=== PATIENT | male | born 1955 | race Caucasian/White ===

== ENCOUNTER 2020-08-26 07:43 | Emergency (ER) | payer MEDICARE, BC ==
[2020-08-26] MEDS ORDERED: Acetaminophen 325 MG Tab PO ONE (08:45)
--- NOTE | 2020-08-26 08:49 | EDM.PDOC ---
ED HPI GENERAL MEDICAL PROBLEM - General Chief Complaint: Head Injury Stated Complaint: HEAD INJURY Time Seen by Provider: 08/26/20 07:53 Source of Information: Reports: Patient History Limitations: Reports: No Limitations - History of Present Illness INITIAL COMMENTS - FREE TEXT/NARRATIVE: The patient presents with a head and neck injury. The patient was out shoveling snow and he slipped on ice and landed on his head. He is not sure if he had an LOC. He does have a headache and upper neck pain. He has no numbness or weakness. He has no fever, chills, cough, chest pain, shortness of breath, abdominal pain, nausea or vomiting. He takes a low dose aspirin daily. He has an abrasion to the back of his head. Onset: Sudden Duration: Minutes: Location: Reports: Head, Neck Quality: Reports: Sharp Severity: Moderate Improves with: Reports: Immobilization Worsens with: Reports: Movement Context: Reports: Trauma (slipped and fell and hit his head and hurt his neck) Associated Symptoms: Reports: Headaches. Denies: Chest Pain, Cough, Fever/Chills, Nausea/Vomiting, Shortness of Breath Posterior Head Pain Score (Numeric/FACES): 8 - Related Data Allergies Allergy/AdvReac Type Severity Reaction Status Date / Time amoxicillin [From Augmentin] Allergy Liver Verified 08/26/20 07:55 Problems aspirin Allergy Bleeding Verified 08/26/20 07:55 clavulanic acid Allergy Liver Verified 08/26/20 07:55 [From Augmentin] Problems Penicillins Allergy Stomach Verified 08/26/20 07:55 Upset Home Meds: Home Meds atorvaSTATin [Lipitor] 20 mg PO DAILY 08/26/20 [History] lisinopriL [Lisinopril] 5 mg PO DAILY 08/26/20 [History] Past Medical History HEENT History: Reports: Hard of Hearing, Impaired Vision Other HEENT History: reading eyeglasses Cardiovascular History: Reports: High Cholesterol, Hypertension, Other (See Below) Other Cardiovascular History: stress test. Respiratory History: Reports: Asthma Gastrointestinal History: Reports: GERD - Past Surgical History HEENT Surgical History: Reports: Adenoidectomy, Tonsillectomy Musculoskeletal Surgical History: Reports: Other (See Below) Other Musculoskeletal Surgeries/Procedures:: lypoma removed. Social & Family History - Tobacco Use Tobacco Use Status *Q: Never Tobacco User Second Hand Smoke Exposure: No - Caffeine Use Caffeine Use: Reports: None - Recreational Drug Use Recreational Drug Use: No ED ROS GENERAL - Review of Systems Review Of Systems: See Below Constitutional: Reports: No Symptoms HEENT: Reports: No Symptoms Respiratory: Reports: No Symptoms Cardiovascular: Reports: No Symptoms Endocrine: Reports: No Symptoms GI/Abdominal: Reports: No Symptoms : Reports: No Symptoms Musculoskeletal: Reports: Neck Pain Skin: Reports: No Symptoms Neurological: Reports: Headache ED EXAM, HEAD INJURY - Physical Exam Exam: See Below Exam Limited By: No Limitations General Appearance: Alert, No Apparent Distress Head: Other (abrasion to the back of his head) Ears: Normal External Exam Nose: Normal Inspection Neck: Tenderness (upper neck) Respiratory: No Respiratory Distress, Lungs Clear, Normal Breath Sounds Cardiovascular: Regular Rate, Rhythm, No Edema, No Murmur GI/Abdominal Exam: Soft, Non-Tender, No Organomegaly, No Mass Back Exam: Normal Inspection Extremities: Normal Inspection Neurologic: No Motor/Sensory Deficits, Alert, Oriented x 3 Course - Vital Signs Last Recorded V/S: Last Vital Signs Temp 97.7 F 08/26/20 07:45 Pulse 86 08/26/20 07:45 Resp 20 08/26/20 07:45 BP 161/81 H 08/26/20 07:45 Pulse Ox 99 08/26/20 07:45 - Orders/Labs/Meds Orders: Active Orders 24 hr Category Date Time Status Cervical Spine wo Cont [CT] Stat Exams 08/26/20 08:15 Taken Head wo Cont [CT] Stat Exams 08/26/20 07:57 Taken Thyroid or Neck (non vasc) [Head Neck Soft Tissue Bi] [ Exams 08/26/20 09:06 Taken US] Stat Labs: Laboratory Tests 08/26/20 Range/Units 09:52 Free T4 0.91 (0.76-1.46) ng/dL TSH 3rd Generation 1.338 (0.358-3.74) uIU/mL Meds: Medications Discontinued Medications Generic Name Dose Route Start Last Admin Trade Name Freq PRN Reason Stop Dose Admin Acetaminophen 975 mg 08/26/20 08:45 08/26/20 08:50 Tylenol PO 08/26/20 08:46 975 mg NOW ONE Administration - Re-Assessments/Exams Free Text/Narrative Re-Assessment/Exam: 08/26/20 08:[address] of his head and cervical spine. 08/26/20 09:[address] of his head shows left parietal soft tissue swelling and age related changes but no evidence of acute intracranial pathology. The CT of his cervical spine shows a 2cm right thyroid nodule. No evidence of cervical spine fracture. I have ordered an US of his thyroid, TSH and free T4. 08/26/20 10:49 The US shows a 2.8 X 2.3 X 1.6cm heterogeneous nodule in the right lobe of the thyroid with evidence of vascularity. TIRADS category 4. FNA biopsy recommended if over 1.5cm. Additional small bilateral subcentimeter lesions. 08/26/20 10:[address] Gupta our general surgeon industrial refrigeration mechanic and he can see him on Sunday at 1pm. Departure - Departure Time of Disposition: 11:00 Disposition: Home, Self-Care 01 Condition: Good Clinical Impression: Concussion injury of brain, Thyroid nodule Fall Qualifiers: Encounter type: initial encounter Qualified Code(s): W19.XXXA - Unspecified fall, initial encounter Scalp abrasion Qualifiers: Encounter type: initial encounter Qualified Code(s): S00.01XA - Abrasion of scalp, initial encounter - Discharge Information *PRESCRIPTION DRUG MONITORING PROGRAM REVIEWED*: Not Applicable *COPY OF PRESCRIPTION DRUG MONITORING REPORT IN PATIENT GABRIEL: Not Applicable Referrals: Chao Poe MD [Primary Care Provider] - Miguel Gupta MD [Physician] - 3 Days Forms: ED Department Discharge Additional Instructions: Clean the abrasion 2 times per day with warm soapy water. Take tylenol or motrin for pain. If you have a worse headache, nausea, vomiting, numbness or weakness. Follow up with Dr Gupta on Sunday at 1pm at our clinic. Sepsis Event Note (ED) - Evaluation Sepsis Screening Result: No Definite Risk - Focused Exam Vital Signs: Vital Signs Temp Pulse Resp BP Pulse Ox 08/26/20 07:45 97.7 F 86 20 161/81 H 99 - My Orders Last 24 Hours: My Active Orders 08/26/20 07:57 Head wo Cont [CT] Stat 08/26/20 08:15 Cervical Spine wo Cont [CT] Stat 08/26/20 09:06 Thyroid or Neck (non vasc) [Head Neck Soft Tissue Bi] [US] Stat - Assessment/Plan Last 24 Hours: My Active Orders 08/26/20 07:57 Head wo Cont [CT] Stat 08/26/20 08:15 Cervical Spine wo Cont [CT] Stat 08/26/20 09:06 Thyroid or Neck (non vasc) [Head Neck Soft Tissue Bi] [US] Stat
== END 2020-08-26 11:08 | disposition home or self-care (01) ==
LOC: JD.ED 07:43
DX: S06.0X9A Concussion with loss of consciousness of unspecified duration, initial encounter (principal); S00.01XA Abrasion of scalp, initial encounter; E04.1 Nontoxic single thyroid nodule; I10 Essential (primary) hypertension; E78.00 Pure hypercholesterolemia, unspecified; J45.909 Unspecified asthma, uncomplicated; Z88.0 Allergy status to penicillin; Z88.1 Allergy status to other antibiotic agents; Z88.8 Allergy status to other drugs, medicaments and biological substances; Z90.49 Acquired absence of other specified parts of digestive tract; Z79.82 Long term (current) use of aspirin; W00.0XXA Fall on same level due to ice and snow, initial encounter
CPT/HCPCS: 36415; 70450; 72125; 76536; 84439; 84443; 99284; A9270; 99283

== ENCOUNTER 2021-06-01 04:54 | Emergency (ER) | payer MEDICARE, BC ==
--- NOTE | 2021-06-01 06:05 | EDM.PDOC ---
ED HPI GENERAL MEDICAL PROBLEM - General Chief Complaint: Neuro Symptoms/Deficits Stated Complaint: R SIDE ARM/SHOULDER/BACK NUMB & TINGLING Time Seen by Provider: 06/01/21 05:04 Source of Information: Reports: Patient, Family () History Limitations: Reports: No Limitations - History of Present Illness INITIAL COMMENTS - FREE TEXT/NARRATIVE: Mr. Villar is a very pleasant 66 year old gentleman who now presents to the ED stating that he went to bed at 22:00 MDT last night, feeling perfectly fine, then woke around 00:30 in order to use the restroom. At that time, he noticed that his entire right upper extremity, as well as some of his right scapular area and right axilla were "asleep" with a tingling/numbness sensation. He was able to return to bed, then rewoke around 04:30, noticing that his right upper extremity still felt the same. No associated chest pain, palpitations, dyspnea, or headache. No prior similar symptoms. The patient did not take any over-the- counter or home remedies prior to coming to the ED. The patient reports that he had a partial thyroidectomy in November, then was diagnosed with a right leg DVT 2 weeks later. He was on Eliquis for 3 weeks, but is now off of it. His only current anticoagulation is an 81 mg aspirin per day. Here in the ED, the patient's initial BP is found to be elevated at 166/85, otherwise, he is hemodynamically stable, afebrile, saturating 97% on room air. He appears comfortable, in no acute distress. Prior to this morning, the patient denies having a recent fever, chills, sore throat, ear pain, nasal or sinus congestion, cough, dyspnea, chest pain, palpitations, nausea, vomiting, constipation, diarrhea, abdominal pain, urinary symptoms, recent weight gain or weight loss, recent bloody bowel movements or black bowel movements, recent joint aches, headaches, or rashes. The patient's PCP is Dr. Chao Poe. His Nurse Outreach Case Manager is Dr. Trinidad Ramos. - Related Data Allergies Allergy/AdvReac Type Severity Reaction Status Date / Time amoxicillin [From Augmentin] Allergy Liver Verified 06/01/21 05:05 Problems aspirin Allergy Bleeding Verified 06/01/21 05:05 clavulanic acid Allergy Liver Verified 06/01/21 05:05 [From Augmentin] Problems Penicillins Allergy Stomach Verified 06/01/21 05:05 Upset Home Meds: Home Meds atorvaSTATin [Lipitor] 20 mg PO DAILY 08/26/20 [History] lisinopriL [Lisinopril] 5 mg PO DAILY 08/26/20 [History] Aspirin [Aspirin EC] 81 mg PO DAILY 06/01/21 [History] Cetirizine HCl [Zyrtec] 10 mg PO DAILY 06/01/21 [History] Pantoprazole [ProTONIX] 40 mg PO DAILY 06/01/21 [History] Past Medical History HEENT History: Reports: Hard of Hearing (hearing aid right ear), Impaired Vision (wears glasses) Cardiovascular History: Reports: Blood Clots/VTE/DVT (DVT Rt leg Nov 2020), High Cholesterol, Hypertension Gastrointestinal History: Reports: GERD Oncologic (Cancer) History: Reports: Thyroid (s/p partial thyroidectomy) - Past Surgical History HEENT Surgical History: Reports: Adenoidectomy, Oral Surgery (dental extractions), Tonsillectomy Endocrine Surgical History: Reports: Thyroidectomy (partial, Nov 2020) Dermatological Surgical History: Reports: Other (See Below) (Lipoma excised of right leg) Social & Family History - Tobacco Use Tobacco Use Status *Q: Never Tobacco User - Caffeine Use Caffeine Use: Reports: None - Alcohol Use Alcohol Use History: Yes Alcohol Use Frequency: Rarely - Recreational Drug Use Recreational Drug Use: No - Living Situation & Occupation Living situation: Reports: , with Spouse, with Family (Daughter + granddaughter) Occupation: Retired ED ROS GENERAL - Review of Systems Review Of Systems: Comprehensive ROS is negative, except as noted in HPI. ED EXAM, NEURO - Physical Exam Exam: See Below Exam Limited By: No Limitations General Appearance: Alert, WD/WN, No Apparent Distress Eye Exam: Bilateral Eye: EOMI, Normal Inspection, PERRL Ears: Normal External Exam, Normal Canal, Normal TMs, Hearing Loss (right ear) Nose: Normal Inspection, Normal Mucosa, No Blood Throat/Mouth: Normal Inspection, Normal Lips, Normal Teeth, Normal Gums, Normal Oropharynx, Normal Voice, No Airway Compromise Head Exam: Atraumatic, Normocephalic Neck: Normal Inspection, Supple, Non-Tender, Full Range of Motion, Other (No tenderness to palpation of the cervical spine. No radicular symptoms with compression of the neck, having the patient turn his head fully to the left or right, tipping his chin to his chest, or fully extending his neck.). No: Lymphadenopathy (L), Lymphadenopathy (R) Respiratory/Chest: No Respiratory Distress, Lungs Clear, Normal Breath Sounds, No Accessory Muscle Use Cardiovascular: Normal Peripheral Pulses, Regular Rate, Rhythm, No Edema, No Gallop, No JVD, No Murmur, No Rub GI/Abdominal: Normal Bowel Sounds, Soft, Non-Tender, No Organomegaly, No Distention, No Abnormal Bruit, No Mass Neurological: Alert, Normal Dorsiflexion, CN II-XII Intact, Normal Plantar Flexion, Normal Gait, Oriented x 3, Other (The patient reports some decrease sensation to his entire right upper extremity, however, his right upper extremity is just as strong as his left, proximally and distally, including hand hand i blocker.) Back Exam: Normal Inspection, Full Range of Motion, NT Extremities: Normal Inspection, Normal Range of Motion, Non-Tender, No Pedal Edema, Normal Capillary Refill, Other (Excellent brachial and radial pulses equal and bilaterally. The right upper extremity is well-perfused and just as warm as the left upper extremity.) Psychiatric: Normal Affect Skin Exam: Warm, Dry, Intact, Normal Color, No Rash Course - Vital Signs Last Recorded V/S: Last Vital Signs Temp 36.9 C 06/01/21 05:06 Pulse 57 L 06/01/21 05:40 Resp 16 06/01/21 05:40 BP 158/87 H 06/01/21 05:40 Pulse Ox 97 06/01/21 05:40 - Re-Assessments/Exams Free Text/Narrative Re-Assessment/Exam: 06/01/21 06:07 As above, the patient noticed his entire right upper extremity, as well as part of his right scapular area and right axilla had a tingling/numbness sensation around 00 30 this morning, which was still there around 04:30. On examination, the patient's right upper extremity is just as warm as his left, with good brachial and radial pulses. His neurologic examination is completely normal, with the exception of his reporting of decreased sensation to his right upper e xtremity, including excellent right upper extremity strength. His right upper extremity symptoms are not modified by compressing his neck, having him turn his head fully to the left or right, tipping his chin to his chest, or extending his neck. He appears to have a neuropraxia, most likely due to sleeping on his arm, however, I wanted to be sure to not miss anything, therefore I called to discuss the case with a Neurologist. Case discussed with Chelsea at [facility] at 05:39. Case then discussed with Dr. Reyes, Neurologist at [facility], at 05:44. He agreed that the patient is likely suffering from right upper extremity neuropraxia, however, he agreed that we should rule out the possibility of an embolic arterial stroke. He asked if we can do a CT perfusion study, which we cannot. He therefore recommended that we transfer the patient to their ED so that the patient can undergo an MRI. He noted that the patient is outside the [place] window, therefore he had no objection if the patient's drove him. The above was discussed with the patient and his . The patient is willing to go to [facility], and his is willing to drive him. Case again discussed with Chelsea at [facility], at 05:59. Case then discussed with Dr. Du, ED Physician at [facility], at 06:01. He accepted the patient for transfer to their facility. The patient will go by private vehicle. 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
== END 2021-06-01 06:25 ==
LOC: JD.ED 04:54
DX: S44.91XA Injury of unspecified nerve at shoulder and upper arm level, right arm, initial encounter (principal); E78.00 Pure hypercholesterolemia, unspecified; I10 Essential (primary) hypertension; K21.9 Gastro-esophageal reflux disease without esophagitis; Z88.0 Allergy status to penicillin; Z88.1 Allergy status to other antibiotic agents; Z88.8 Allergy status to other drugs, medicaments and biological substances; Z79.82 Long term (current) use of aspirin; Z79.899 Other long term (current) drug therapy; Z79.01 Long term (current) use of anticoagulants; Z98.890 Other specified postprocedural states; X58.XXXA Exposure to other specified factors, initial encounter
CPT/HCPCS: 99284